=== PATIENT | female | born 1990 | race Caucasian/White ===

== ENCOUNTER 2019-02-11 13:34 | Inpatient (IN) | payer OTHER ==
[2019-02-11 15:38] VITALS: BMI 19.5
--- NOTE | 2019-02-11 16:17 | HP ---
CIWA Score - Admission Criteria [facility] Guidelines: Admission for Medically Managed Detox: Requires at least one of the followin. CIWA greater than 12 2. Seizures within the past 24 hours 3. Delirium tremens within the past 24 hours 4. Hallucinations within the past 24 hours 5. Acute intervention needed for co occurring medical disorder 6. Acute intervention needed for co occurring psychiatric disorder 7. Severe withdrawal that cannot be handled at a lower level of care (continued vomiting, continued diarrhea, abnormal vital signs) requiring intravenous medication and/or fluids 8. Admission ROS [facility] Chief Complaint: crack/cocaine rehab Allergies/Adverse Reactions: Allergies Allergy/AdvReac Type Severity Reaction Status Date / Time No Known Allergies Allergy Verified 02/11/19 15:29 History of Present Illness: Patient is a 28 yo F with a PMHx of Asthma, anxiety, presenting here for crack/ cocaine rehab. Uses 40 dollars of crack cocaine a day via inhalation and smoke. No IV drug use. She said she has a warrant out for her arrest and is coming in today to help her out. Has been smoking it on and off since 2013. Detox for heroin in 2016. Occasional alcohol 3x a month. 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 Exam Limitations: No Limitations - Ebola screening Have you traveled outside of the country in the last 21 days: No Have you had contact with anyone from an Ebola affected area: No Do you have a fever: No - Review of Systems Constitutional: Loss of Appetite, Unintentional Wgt. Loss Respiratory: reports: Cough, Shortness of Breath Cardiac: denies: Chest Pain, Palpitations Patient History - Patient Medical History Hx Anemia: No Hx Asthma: Yes Hx Chronic Obstructive Pulmonary Disease (COPD): No Hx Cancer: No Hx Cardiac Disorders: No Hx Congestive Heart Failure: No Hx Hypertension: No Hx Hypercholesterolemia: No Hx Pacemaker: No HX Cerebrovascular Accident: No Hx Seizures: No Hx Dementia: No Hx Diabetes: No Hx Gastrointestinal Disorders: No Hx Liver Disease: No Hx Genitourinary Disorders: No Hx Sexually Transmitted Disorders: No Hx Renal Disease (ESRD): No Hx Thyroid Disease: No Hx Human Immunodeficiency Virus (HIV): No Hx Hepatitis C: No Hx Depression: No Hx Suicide Attempt: No Hx Bipolar Disorder: No Hx Schizophrenia: No - Patient Surgical History Past Surgical History: No Hx Neurologic Surgery: No Hx Cataract Extraction: No Hx Cardiac Surgery: No Hx Lung Surgery: No Hx Breast Surgery: No Hx Breast Biopsy: No Hx Abdominal Surgery: No Hx Appendectomy: No Hx Cholecystectomy: No Hx Genitourinary Surgery: No Hx Section: No Hx Orthopedic Surgery: No Anesthesia Reaction: No - PPD History Date: 05/25/15 Results: 0mm - Reproductive History Last Menstrual Period: 05/22/15 - Smoking Cessation Smoking history: Current every day smoker Have you smoked in the past 12 months: Yes Aproximately how many cigarettes per day: 10 Cigars Per Day: 0 Hx Chewing Tobacco Use: No Initiated information on smoking cessation: Yes 'Breaking Loose' booklet given: 02/11/19 - Substances abused Cocaine Substance route: Inhalation Frequency: Daily Amount used: $40 Age of first use: 20 Date of last use: 02/10/19 Alcohol Substance route: Oral Frequency: 1-3 times last 30 days Amount used: 8 cans of beer Age of first use: 20 Date of last use: 02/10/19 Marijuana/Hashish Substance route: Smoking Frequency: Daily Amount used: $20 Age of first use: 16 Date of last use: 02/11/19 Family Disease History - Family Disease History Family Disease History: Other: Mother (multiple sclerosis) Admission Physical Exam [facility] - Vital Signs Vital Signs: Vital Signs - 24 hr 02/11/19 15:28 Temperature 97.3 F L Pulse Rate 96 H Respiratory 18 Rate Blood Pressure 127/76 - Physical General Appearance: Yes: No Apparent Distress Respiratory: Yes: No Respiratory Distress, No Accessory Muscle Use Cardiology: Yes: Regular Rhythm, Regular Rate, S1, S2 Extremities: No: Swelling - Diagnostic (1) Anxiety Current Visit: Yes Status: Acute (2) Cocaine dependence Current Visit: No Status: Active (3) Nicotine dependence Current Visit: No Status: Acute (4) Cannabis dependence Current Visit: No Status: Chronic Breathalyzer - Breathalyzer Breathalyzer: 0 Urine Drug Screen - Test Device Lot number: [id number] Expiration date: 10/24/20 - Control Is test valid?: Yes - Results Drug screen NEGATIVE: Yes Urine drug screen results: THC-Marijuana, DONA-Cocaine Inpatient Rehab Admission - Rehab Decision to Admit Inpatient rehab admission?: Yes - Initial Determination Are CD services needed?: Yes Free of communicable disease: Yes Not in need of hospitalization: Yes - Rehab Admission Criteria Previous failed treatment: Yes Poor recovery environment: No Comorbidities: No Lacks judgement: No Patient is meeting Inpatient Rehab admission criteria:: Yes
--- NOTE | 2019-02-11 16:23 | PN ---
Teaching Attending Note Name of Resident: Jayna Snow ATTENDING PHYSICIAN STATEMENT I saw and evaluated the patient. I reviewed the resident's note and discussed the case with the resident. I agree with the resident's findings and plan as documented. SUBJECTIVE: 28 yo with h/o asthma, anxiety, here for cocaine and THC rehab. Smokes cocaine $ 40/day. Here b/c of legal issues OBJECTIVE: Vital Signs - 24 hr 02/11/19 15:28 Temperature 97.3 F L Pulse Rate 96 H Respiratory 18 Rate Blood Pressure 127/76 alert and oriented ASSESSMENT AND PLAN: Admit to rehab for cocaine use disorder
[2019-02-11] MEDS ORDERED: IBUPROFEN 400 MG TABLET (FP) PO PRN (16:24)
[2019-02-11] MEDS ORDERED: P-EPHED 60MG/TRIPROLIDI 2.5MG TABLET PO PRN (16:24)
[2019-02-11] MEDS ORDERED: guaiFENesin 200 MG/10 ML 10 ML UNIT-DOSE CUPS PO PRN (16:24)
[2019-02-11] MEDS ORDERED: ACETAMINOPHEN 325 MG TABLET (FP) PO PRN (16:24)
[2019-02-11] MEDS ORDERED: LOPERAMIDE HCL 2 MG CAPSULE PO PRN (16:24)
[2019-02-11] MEDS ORDERED: MAGNESIUM CITRATE 300 ML BOTTLE PO PRN (16:24)
[2019-02-11] MEDS ORDERED: MAG HYDROX/AL HYDROX/SIMETH 30 ML UNIT-DOSE CUP PO PRN (16:24)
[2019-02-11] MEDS ORDERED: MENTHOL/PHENOL 1 EACH UD MM PRN (16:24)
[2019-02-11] MEDS ORDERED: MAGNESIUM HYDROX 2400MG/30ML ORAL SUSPENSION 30 ML CUP PO PRN (16:24)
[2019-02-11] MEDS ORDERED: NICOTINE POLACRILEX 2 MG GUM BUC PRN (16:24)
[2019-02-11] MEDS: NICOTINE 7 MG/24 HOURS TOPICAL PATCH TD SCH (19:14)
[2019-02-11] MEDS: MELATONIN 5 MG TABLETS PO PRN (21:24)
[2019-02-11] MEDS: THIAMINE HCL 100 MG TABLET (FP) PO SCH (21:24)
[2019-02-12] MEDS ORDERED: ALBUTEROL SO4 8 GM HFA INHALER IH ONE (08:26)
[2019-02-12] MEDS: NICOTINE 7 MG/24 HOURS TOPICAL PATCH TD SCH (09:13)
[2019-02-12] MEDS: PRENATAL VITAMINS W/ FOLIC ACID TABLET (FP) PO SCH (09:13)
--- NOTE | 2019-02-12 09:52 | CONSULT ---
[facility] Psychiatric Consult - Data Date of interview: 02/12/19 Admission source: [facility] Identifying data: Bundle Tier attempted to speak to patient multiple times concerning psychiatric consultation but patient refused. [facility] staff also attempted to awaken patient for morning medications but patient refused to get up. Psychiatric consultation refused.
[2019-02-12] MEDS ORDERED: ALBUTEROL SO4 8 GM HFA INHALER IH PRN (10:41)
[2019-02-12 11:33] LABS: HEMATOCRIT 43.7 % (32.4-45.2); HEMOGLOBIN 14.3 GM/dL (10.7-15.3); MCH 30.8 pg (25.7-33.7); MCHC 32.7 g/dl (32.0-36.0); MEAN CELL VOLUME 94.4 fl (80-96); MEAN PLT VOLUME 8.1 fl (7.5-11.1); PLATELET COUNT 364 K/MM3 (134-434); RBC 4.63 M/mm3 (3.60-5.2); RDW 14.6 % (11.6-15.6); WHITE BLOOD COUNT 12.4 K/mm3 (4.0-10.0)
[2019-02-12 11:40] LABS: ALBUMIN 3.8 g/dl (3.4-5.0); BILIRUBIN,TOTAL 0.4 mg/dL (0.2-1); BLOOD UREA NITROGEN 15.3 mg/dL (7-18); CALCIUM 9.4 mg/dL (8.5-10.1); CREATININE 1.1 mg/dL (0.55-1.3); POTASSIUM 4.7 mmol/L (3.5-5.1); TOT PROT 6.9 g/dl (6.4-8.2)
[2019-02-12] MEDS: BUDESONIDE/FORMETEROL FUMARATE 80/4.5 mcg INHALER IH SCH ×2 (11:46→21:20)
[2019-02-12] MEDS: MELATONIN 5 MG TABLETS PO PRN (21:21)
[2019-02-12] MEDS: THIAMINE HCL 100 MG TABLET (FP) PO SCH (21:21)
[2019-02-13 07:45] VITALS: BP 112/75; PULSE 99; TEMP 98.4
[2019-02-13] MEDS ORDERED: PT OWN MED DRAWER 7, Y5N ONE ×2 (08:52→11:04)
[2019-02-13] MEDS: PRENATAL VITAMINS W/ FOLIC ACID TABLET (FP) PO SCH (09:49)
[2019-02-13] MEDS: NICOTINE 7 MG/24 HOURS TOPICAL PATCH TD SCH (09:49)
[2019-02-13] MEDS: BUDESONIDE/FORMETEROL FUMARATE 80/4.5 mcg INHALER IH SCH (09:49)
--- NOTE | 2019-02-13 10:52 | DS ---
[facility] Rehab Discharge Summary - [facility] Rehab Discharge Summary Admission Date: 02/11/19 Discharge Date: 02/13/19 - History Present History: Alcohol dependence, Cannabis dependence, Cocaine dependence Additional Comments: Pt is a 28 y/o female admitted to rehab on 02/11/19 for alcohol, cocaine and marijuana use disorder and wants to leave treatment today stating "I don't like it here. I am going [facility] to another where my family lives". However, pt reports she lives alone in the [place] and wants to go [facility] now to family members and follow up with treatment over there. Pt reports she has primary prescriber [facility] at [place], [place]. Pertinent Past History: Asthma Anxiety disorder - Discharge Physical Exam Vital Signs: Vital Signs Temperature 98.4 F 02/13/19 07:43 Pulse Rate 99 H 02/13/19 07:43 Respiratory Rate 18 02/13/19 07:43 Blood Pressure 112/75 02/13/19 07:43 O2 Sat by Pulse Oximetry (%) alert o x 3 nad Heent:Normocaphalic, eomi,karena,hearing intact Neck:Supple, no jvd Cardiac:s1 s2,rrr lungs:cta,yisel. Abdomen:soft,+bs,nt,flat Extremities/Skin:no edema or cyanosis;skin intact;ambulates with steady gait. Pertinent Admission Physical Exam Findings: Laboratory Tests 02/12/19 02/12/19 02/12/19 08:30 08:30 08:30 WBC 12.4 H RBC 4.63 Hgb 14.3 Hct 43.7 MCV 94.4 MCH 30.8 MCHC 32.7 RDW 14.6 Plt Count 364 D MPV 8.1 Sodium 142 Potassium 4.7 Chloride 110 H Carbon Dioxide 25 Anion Gap 7 L BUN 15.3 Creatinine 1.1 Est GFR (CKD-EPI)AfAm 79.68 Est GFR (CKD-EPI)NonAf 68.75 Random Glucose 98 Calcium 9.4 Total Bilirubin 0.4 AST 11 L ALT 19 Alkaline Phosphatase 48 Total Protein 6.9 Albumin 3.8 RPR Titer Nonreactive - Treatment Discharge Condition: Discharge condition good Hospital Course: Rehab stay was safe. - Medication Discharge Medications: Ambulatory Orders Albuterol Sulfate Inhaler - [Ventolin HFA Inhaler -] 2 inh PO Q4H PRN 05/23/15 Buspirone HCl [Buspar -] 10 mg PO BID 02/11/19 traZODone HCL [Trazodone HCl] 50 mg PO HS 02/11/19 - Medication-Assisted Treatment (MAT) Medication-Assisted Treatment (MAT): No - Discharge Instructions Diet, activity, other medical instructions: Diet: Activity: Other medical instructions: - Diagnosis (1) Cocaine dependence Status: Chronic (2) Alcohol dependence Status: Chronic Qualifiers: Substance use status: uncomplicated Qualified Code(s): F10.20 - Alcohol dependence, uncomplicated (3) Nicotine dependence Status: Chronic Qualifiers: Nicotine product type: cigarettes Substance use status: uncomplicated Qualified Code(s): F17.210 - Nicotine dependence, cigarettes, uncomplicated (4) Cannabis dependence Status: Chronic - Follow-up Referral Minutes to complete discharge: 20 - AMA Did Patient Leave Against Medical Advice: No
== END 2019-02-13 11:08 | disposition home or self-care (01) | DRG 772 ==
LOC: YASAS 13:34 → Y3E 16:48
PROVIDERS: ADMIT Neuromusculoskeletal Medicine & OMM; ATTEND Neuromusculoskeletal Medicine & OMM
PROC: HZ42ZZZ Group Counseling for Substance Abuse Treatment, Cognitive-Behavioral (ICD-10-PCS; principal; 2019-02-11)
DX: F10.20 Alcohol dependence, uncomplicated (principal); F14.20 Cocaine dependence, uncomplicated; F12.20 Cannabis dependence, uncomplicated; F17.210 Nicotine dependence, cigarettes, uncomplicated; J45.909 Unspecified asthma, uncomplicated
CPT/HCPCS: 36415; 80053; 81025; 85027; 86593